=== PATIENT | female | born 1965 | race Caucasian/White ===

== ENCOUNTER → 2020-04-09 | Day surgery (SDC) | payer BC ==
[2020-04-09 07:17] VITALS: BP 123/76; PULSE 97; RESP 16; TEMP 98.2
--- NOTE | 2020-04-09 12:22 | MM ---
Stereotactic Mammotome core biopsy left breast 2 sites. HISTORY: 2 sites of microcalcifications left breast The microcalcifications in question within the left breast were targeted by the undersigned. Procedure was performed by the undersigned. Informed consent was obtained and all of the patients questions were answered. The standard sterile technique was utilized and appropriate local anesthesia was obtained with 1% lidocaine and lidocaine with epinephrine at each site. Mammotome probe was advanced and multiple core samples were obtained and sent to pathology for interpretation. Microclip markers was deployed at the sites of biopsy. Post procedural mammogram demonstrates appropriate deployment of radiopaque clip markers. The patient tolerated the procedure well and left the department in stable condition. Pathology results are pending. IMPRESSION: Successful stereotactic core biopsy left breast 2 sites with pathology results pending. Pathology Results: Benign A. LEFT BREAST, ANTERIOR B, NEEDLE CORE BIOPSY: Fibrocystic change with a few minute foci of dystrophic calcification. B. LEFT BREAST, POSTERIOR A, NEEDLE CORE BIOPSY: Fibrocystic change with multiple foci of dystrophic calcification. Recommendation Follow up mammogram of the left breast in 6 months. JEFFREY
== END ==
LOC: RADMAMWWP 07:01
PROVIDERS: ATTEND Obstetrics & Gynecology
DX: N60.12 Diffuse cystic mastopathy of left breast (principal)
CPT/HCPCS: 88305; 19081; 19082; A4648; J2001

== ENCOUNTER 2024-06-29 13:10 | Day surgery (SDC) | payer BC ==
[2024-06-28 09:50] VITALS: BMI 30.9
[2024-06-29 14:24] VITALS: RESP 16; TEMP 97
[2024-06-29] MEDS: IV FLUID CONTINUATION 1,000 ML IV ONE (14:24)
[2024-06-29] MEDS: LACTATED RINGERS 1,000 ML IV SCH (14:25)
[2024-06-29] MEDS ORDERED: PROPOFOL 10 MG/ML 20 ML VIAL IV ONE (15:18)
--- NOTE | 2024-06-29 15:38 | P.PCN ---
Date of Procedure: 06/29/24 Procedure(s) Performed: BRIEF HISTORY: Patient is a 59-year-old pleasant white female scheduled for an elective colonoscopy as a part of screening for colon cancer. PROCEDURE PERFORMED: Colonoscopy with snare polypectomy and biopsy. PREOPERATIVE DIAGNOSIS: Screening for colon cancer. IV sedation per Anesthesia. PROCEDURE: After informed consent was obtained, the patient, was brought into the endoscopy unit. IV sedation was administered by Anesthesia under continuous monitoring. Digital rectal examination was normal. Initially the Olympus CF-160 flexible video colonoscope was then inserted in the rectum, gradually advanced into the cecum without any difficulty. Careful examination was performed as the scope was gradually being withdrawn. Ileocecal valve and the appendiceal orifice were visualized and appeared normal. Prep was excellent. Mucosa of the cecum appeared normal. The ascending colon there was a millimeter polyp that was removed by cold biopsy. In the descending colon there was a 7 mm polyp removed by cold snare polypectomy. Rest of the, ascending colon, transverse colon, descending colon, sigmoid colon, and rectum appeared normal. Sigmoid diverticulosis. Retroflexion was performed in the rectum and no lesions were seen. The patient tolerated the procedure well. IMPRESSION: 3 mm millimeter ascending colon polyp status post cold biopsy 7 mm flat descending colon polyp status post cold snare polypectomy Scattered sigmoid diverticulosis. RECOMMENDATIONS: Findings of this examination were discussed with the patient as well as her family. She was advised to follow with the biopsy results. If the biopsy reveals adenoma she can have repeat colonoscopy in 5 years.
[2024-06-29 15:59] VITALS: BP 133/82; PULSE 86
== END 2024-06-29 16:26 | disposition home or self-care (01) ==
LOC: ORWHC2ENDO 13:10
PROVIDERS: ATTEND Internal Medicine Gastroenterology
DX: Z12.11 Encounter for screening for malignant neoplasm of colon (principal); D12.4 Benign neoplasm of descending colon; K63.5 Polyp of colon; K57.30 Diverticulosis of large intestine without perforation or abscess without bleeding; K21.9 Gastro-esophageal reflux disease without esophagitis; Z79.899 Other long term (current) drug therapy; Z88.2 Allergy status to sulfonamides
CPT/HCPCS: 88305; 45380; 45385; J2704